=== PATIENT | female | born 1930 | race Caucasian/White ===

== ENCOUNTER 2017-04-07 05:56 | Emergency (ER) | payer OTHER ==
[~2017-04-07] VITALS: Ht 165.1 cm; Wt 79.4 kg
[~2017-04-07 05:56] MED LIST: ACETAMINOPHEN PO; ANECREAM 4% KI1 EACH TOP; APAP650 PO; BENGAY GREASELE57 GM TOP; CLARITIN10 MG PO; CRANBERRY450 M1 PO; DARVOCET-N 1001 EACH PO; DOK; DOXYCYCLINE 10100 MG PO; FLONASE 0.05%50 MCG NASAL; FOSAMAX 70 MG PO; FOSAMAX 70 MG T70 M1; GABAPENTIN100 MG PO; GLYCOLAX POWDER17 G1; HYDROCODON-ACE1 EAC7 PO; IMDUR 30 MG TAB30 M1 PO; LASIX 20 MG TAB20 MG PO; LASTACAFT3 ML INTRAOCULR; LEVOXYL75 MCG PO; LUMIGAN2.5 M1; LUMIGAN2.5 M1 INTRAOCULR; MACULAR HEALTH1 EACH; MACULAR SHIELD PO; MACULAR VITAMI1 EACH PO; PATADAY2.5 ML OPHTHALMIC; SEROQUEL XR50 MG PO; SYSTANE 0.3-0.1 EACH; SYSTANE LIQUID15 ML INTRAOCULR; TRAZODONE 150150 M1; TYLENOL EX-STR500 M2; ZANTAC 150MG T150 M1 PO; ZOLOFT 50 MG TA50 M1 PO; [UNRECOGNIZED DRUG - OTHER] PO; [UNRECOGNIZED DRUG - OTHER] PO
[2017-04-07] MEDS ORDERED: XALATAN2.5 ML OPHTHALMIC (06:11)
[2017-04-07] MEDS ORDERED: COREG3.125 MG PO (06:13)
[2017-04-07] MEDS ORDERED: TRILEPTAL150 MG PO (06:15)
[2017-04-07] MEDS ORDERED: MIRALAX17 GM PO (06:16)
[2017-04-07] MEDS ORDERED: ANTI-ITCH28 GM TP (06:17)
[2017-04-07] MEDS ORDERED: SENNA8.6 MG PO (06:18)
[2017-04-07] MEDS ORDERED: LOPERAMIDE 2 MG2 M1 PO (06:19)
[2017-04-07] MEDS ORDERED: MACROBID 100 M100 M2 PO (06:19)
[2017-04-07] MEDS ORDERED: IRON325 PO (06:19)
== END 2017-04-07 11:10 ==
LOC: ER 05:56
DX: S00.03XA Contusion of scalp, initial encounter (principal); I50.9 Heart failure, unspecified; E78.00 Pure hypercholesterolemia, unspecified; F41.9 Anxiety disorder, unspecified; Z88.6 Allergy status to analgesic agent; Z88.0 Allergy status to penicillin; Z88.8 Allergy status to other drugs, medicaments and biological substances; W18.30XA Fall on same level, unspecified, initial encounter; Y93.89 Activity, other specified; Y92.091 Bathroom in other non-institutional residence as the place of occurrence of the external cause; Y99.8 Other external cause status